=== PATIENT | female | born 1975 | race Caucasian/White ===

== ENCOUNTER 2020-10-05 14:13 | Outpatient (CLI) | payer OTHER, SELFPAY ==
--- NOTE | 2020-10-06 11:56 | WPDPFTINT ---
PFT Interpretation This is a pulmonary function test with pre and post-bronchodilator spirometry, plethysmography and diffusing capacity. The test was performed and results interpreted in accordance with the 2019 and 2005 ATS/ERS Task Force guidelines respectively using the [employer] reference equations. Findings: Spirometry: the contour of the inspiratory and expiratory flow tracing are normal. The pre bronchodilator FVC is 3.98 L, 115% predicted. The pre bronchodilator FEV1 is 3.06 L, 115% predicted. The FEV1: FVC ratio is 77%. The post bronchodilator FVC is 3.90 L, representing a 2% decrease. The post bronchodilator FEV1 is 3.14 L, representing a 3% increase. Plethysmography: The total lung capacity is 5.15 L, 102% predicted. The functional residual capacity is 2.63 L, 91% predicted. The residual volume is 1.16 L, 68% predicted. Diffusing capacity the absolute diffusion capacity is 22.2, 108% predicted. The diffusing capacity corrected for alveolar volume is 4.36, 103% predicted. Impression: The spirometry is normal without evidence of an obstructive abnormality. There is no significant improvement after inhaling a single dose of albuterol. There is a isolated decrease in the residual volume of uncertain significance. The diffusing capacity is normal. There are no prior studies for comparison
== END 2020-10-05 14:14 | disposition home or self-care (01) ==
LOC: ANHPFT 14:14
PROVIDERS: PCP Internal Medicine Critical Care Medicine; Visit Provider Internal Medicine Critical Care Medicine
DX: J45.909 Unspecified asthma, uncomplicated (principal)
CPT/HCPCS: 94060; 94726; 94729

== ENCOUNTER 2020-12-14 08:41 | Outpatient (CLI) | payer OTHER, SELFPAY ==
--- NOTE | 2020-12-14 12:40 | WPDMETH ---
Methacholine Challenge This is a methacholine challenge test. The test was performed and interpreted in accordance with the 1999 [employer] guidelines. The test was performed with increasing doses of nebulized methacholine using a 2 minute tidal breathing protocol. The best post-methacholine FEV1 values were used to calculate the change from the post diluent FEV1. Findings: Baseline FEV1 2.98 L, 102% predicted. Post diluent FEV1 2.95 L Post 0.025 mg/ml methacholine FEV1 2.91 L, decreased 1% Post 0.25 mg/mL methacholine FEV1 2.88 L, decreased 1% Post 2.5 mg/mL methacholine FEV1 2.20 L, decreased 25% Post albuterol nebulization FEV1 3.04 L Impression: The PC20 is 1.45 mg/ml which is categorized as mild bronchial hyperresponsiveness. There are no prior methacholine challenge studies for comparison Methacholine Procedure Perform Procedure Performed Methacholine Challenge
== END 2020-12-14 08:42 | disposition home or self-care (01) ==
PROVIDERS: Visit Provider Nurse Practitioner
DX: J45.909 Unspecified asthma, uncomplicated (principal)
CPT/HCPCS: 94070; J7674